=== PATIENT | female | born 1935 | race Caucasian/White ===

== ENCOUNTER 2017-03-23 07:12 | Day surgery (SDC) | payer OTHER ==
[2017-03-23] MEDS ORDERED: NS 500 ML IV 500 ML IV ONE (07:23)
[2017-03-23] MEDS ORDERED: TETRACAINE 0.5% OPHTH 1 DOSE AFFEYE ONE ×4 (07:30→10:01)
[2017-03-23] MEDS ORDERED: VIGAMOX 0.5% OPHTH 1 DOSE AFFEYE ONE ×5 (07:35→10:15)
[2017-03-23] MEDS ORDERED: PROLENSA OPHTH 1 DOSE AFFEYE ONE (07:46)
[2017-03-23] MEDS ORDERED: ALPHAGAN-P OPHTH 1 DOSE AFFEYE ONE (07:47)
[2017-03-23] MEDS ORDERED: CYCLOGYL 1% OPHTH 1 DOSE OP ONE ×4 (07:48→07:50)
[2017-03-23] MEDS ORDERED: MYDRIACIL OPHTH 1 DOSE AFFEYE ONE ×3 (07:48→07:50)
[2017-03-23] MEDS ORDERED: AK-DILATE 2.5% OPHTH 1 DOSE OP ONE ×2 (07:48→07:50)
[2017-03-23] MEDS ORDERED: BETADINE OPHTH SOLN 5% EACHEYE ONE (09:52)
[2017-03-23] MEDS ORDERED: DUOVISC IO ONE ×2 (09:56→10:01)
[2017-03-23] MEDS ORDERED: ADRENALINE CHL INJ IJ ONE ×2 (09:56→10:01)
[2017-03-23] MEDS ORDERED: BSS OPHTH (PLAIN) 500 ML with VANCOMYCIN HCL 500 MG VIAL 25 MG, ADRENALINE CHL INJ 1 MG IR ONE ×6 (09:56)
[2017-03-23] MEDS ORDERED: XYLOCAINE-MPF 1% IJ ONE ×2 (09:56→10:01)
[2017-03-23 13:20] VITALS: BP 150/60
[2017-03-23] MEDS ORDERED: DIPRIVAN VIAL ONE (13:48)
[2017-03-23] MEDS ORDERED: VERSED ONE (13:48)
== END 2017-03-23 10:40 | disposition home or self-care (01) ==
LOC: SURG1 07:12
PROVIDERS: ATTEND Ophthalmology
PROC: 08DJ3ZZ Extraction of Right Lens, Percutaneous Approach (ICD-10-PCS; principal; 2017-03-23 11:30)
PROC: 08RJ3JZ Replacement of Right Lens with Synthetic Substitute, Percutaneous Approach (ICD-10-PCS; principal; 2017-03-23 11:30)
DX: H25.11 Age-related nuclear cataract, right eye (principal); H25.011 Cortical age-related cataract, right eye; H52.221 Regular astigmatism, right eye
CPT/HCPCS: 99100; A4217; J0170; J2250; J3370; J3490

== ENCOUNTER 2017-04-13 10:20 | Day surgery (SDC) | payer OTHER ==
[2017-04-13] MEDS ORDERED: NS 500 ML IV 500 ML IV ONE (10:28)
[2017-04-13] MEDS ORDERED: TETRACAINE 0.5% OPHTH 1 DOSE AFFEYE ONE ×2 (11:30→13:56)
[2017-04-13] MEDS ORDERED: VIGAMOX 0.5% OPHTH 1 DOSE AFFEYE ONE ×5 (11:35→14:29)
[2017-04-13] MEDS ORDERED: PROLENSA OPHTH 1 DOSE AFFEYE ONE (11:50)
[2017-04-13] MEDS ORDERED: ALPHAGAN-P OPHTH 1 DOSE AFFEYE ONE (11:51)
[2017-04-13] MEDS ORDERED: CYCLOGYL 1% OPHTH 1 DOSE OP ONE ×3 (11:52→11:54)
[2017-04-13] MEDS ORDERED: MYDRIACIL OPHTH 1 DOSE AFFEYE ONE ×3 (11:52→11:54)
[2017-04-13] MEDS ORDERED: AK-DILATE 2.5% OPHTH 1 DOSE OP ONE ×3 (11:52→11:54)
[2017-04-13] MEDS ORDERED: BETADINE OPHTH SOLN 5% EACHEYE ONE (13:56)
[2017-04-13] MEDS ORDERED: DUOVISC IO ONE ×2 (14:00→14:05)
[2017-04-13] MEDS ORDERED: ADRENALINE CHL INJ IJ ONE ×2 (14:00→14:05)
[2017-04-13] MEDS ORDERED: XYLOCAINE-MPF 1% IJ ONE ×2 (14:00→14:05)
[2017-04-13] MEDS ORDERED: BSS OPHTH (PLAIN) 500 ML with VANCOMYCIN HCL 500 MG VIAL 25 MG, ADRENALINE CHL INJ 1 MG IR ONE ×6 (14:01)
[2017-04-13] MEDS ORDERED: VISCOAT 0.5 ML IO ONE (14:16)
[2017-04-13 14:53] VITALS: BP 149/81
[2017-04-13] MEDS ORDERED: DIPRIVAN VIAL ONE (15:59)
== END 2017-04-13 14:52 | disposition home or self-care (01) ==
LOC: SURG1 10:20
PROVIDERS: ATTEND Ophthalmology
PROC: 08RK3JZ Replacement of Left Lens with Synthetic Substitute, Percutaneous Approach (ICD-10-PCS; principal; 2017-04-13 21:30)
PROC: 08DK3ZZ Extraction of Left Lens, Percutaneous Approach (ICD-10-PCS; principal; 2017-04-13 21:30)
DX: H25.12 Age-related nuclear cataract, left eye (principal); H25.012 Cortical age-related cataract, left eye; H52.222 Regular astigmatism, left eye
CPT/HCPCS: 99100; A4217; J0170; J3370; J3490